=== PATIENT | male | born 1930 | race Caucasian/White ===

== ENCOUNTER 2017-04-29 13:31 | Inpatient (IN) | payer MEDICARE, OTHER ==
[~2017-04-29] VITALS: Ht 167.6 cm; Wt 69.6 kg
[2017-04-29] MEDS ORDERED: SODIUM CHLORIDE FLUSH 10ML SYR IVF ONE (14:30)
[2017-04-29] MEDS ORDERED: SODIUM CHLORIDE 0.9% 1,000ML IVBOLUS ONE (14:30)
[2017-04-29 14:51] LABS: DIFF TOTAL CELLS COUNTED 100 CELL DIFF
[2017-04-29] MEDS ORDERED: CEFTRIAXONE PMX 1GM/50ML 50 ML ONE (14:55)
[2017-04-29 14:56] LABS: ANISOCYTOSIS 2+; HYPOCHROMIA 1+; MICROCYTOSIS 2+
[2017-04-29 14:57] LABS: ASPARTATE AMINO TRANSFERASE 44 U/L (15-37); OVALOCYTES 1+; POLYCHROMASIA 1+
[2017-04-29 14:58] LABS: ACANTHOCYTES 1+
[2017-04-29 14:59] LABS: LARGE PLATELETS 1+; VERIFY COUNTS? YES
[2017-04-29 15:05] LABS: IS PT STATUS REG ER OR PRE ER? YES
[2017-04-29 15:07] LABS: BLOOD UREA NITROGEN 54 mg/dL (7-18)
[2017-04-29] MEDS ORDERED: CEFTRIAXONE 1,000 MG in SODIUM CHLORIDE 0.9% 50 ML IV ONE (15:30)
[2017-04-29] MEDS ORDERED: AZITHROMYCIN 500 MG in SODIUM CHLORIDE 0.9% 250 ML IV ONE (16:00)
[2017-04-29] MEDS ORDERED: SODIUM CHLORIDE 0.9%, 500ML IVBOLUS ONE (16:00)
[2017-04-29] MEDS ORDERED: ALPR0.25 PO (16:46)
[2017-04-29] MEDS ORDERED: ATOR40TA78 PO (16:46)
[2017-04-29] MEDS ORDERED: ASPI-650 PO (16:46)
[2017-04-29] MEDS ORDERED: TERA1CAP3 PO (16:46)
[2017-04-29] MEDS ORDERED: POLY17PO3 PO (16:46)
[2017-04-29] MEDS ORDERED: FERR325T23 PO (16:46)
[2017-04-29] MEDS ORDERED: POTA20PA PO (16:46)
[2017-04-29] MEDS ORDERED: METF500T4 PO (16:46)
[2017-04-29] MEDS ORDERED: FURO-92 PO (16:46)
[2017-04-29] MEDS ORDERED: OMEP-110 PO (16:46)
[2017-04-29] MEDS ORDERED: RAMI2.5C PO (16:46)
[2017-04-29] MEDS ORDERED: LINA5TAB PO (16:46)
[2017-04-29] MEDS ORDERED: BISACODYL 10 MG SUPP PR PRN (17:00)
[2017-04-29] MEDS ORDERED: ENALAPRILAT 1.25 MG/ML, 2ML IVPush PRN (17:00)
[2017-04-29] MEDS ORDERED: OXYcodone IR 5MG TABLET PO PRN (17:00)
[2017-04-29] MEDS ORDERED: POLYETHYLENE GLYCOL 17 GM PACKET PO PRN (17:00)
[2017-04-29] MEDS ORDERED: LABETALOL 5MG/ML, 20ML IVPush PRN (17:00)
[2017-04-29] MEDS ORDERED: HEPARIN 5,000 UNITS/ML, 1ML SQ SCH (17:00)
[2017-04-29] MEDS ORDERED: ONDANSETRON 2MG/ML, 2ML IVPush PRN (17:00)
[2017-04-29] MEDS ORDERED: ACETAMINOPHEN 325 MG TABLET PO PRN (17:00)
[2017-04-29] MEDS ORDERED: MORPHINE SULFATE 4 MG/ML, 1ML IVPush PRN (17:00)
[2017-04-29 18:30] VITALS: BP 102/58
[2017-04-29 19:43] VITALS: BP 113/62
[2017-04-29] MEDS: INSULIN ASPART 100 UNITS/ML, PEN SQ-INSULIN SCH (20:09)
[2017-04-29] MEDS: DOXYCYCLINE 100 MG in DEXTROSE 5% 250 ML IV SCH (20:14)
[2017-04-29] MEDS: FERROUS SULFATE 325 MG TABLET PO SCH (20:17)
[2017-04-29] MEDS: ATORVASTATIN 40 MG TABLET PO SCH (20:17)
[2017-04-29] MEDS ORDERED: MAGNESIUM SULFATE 6 GM in SODIUM CHLORIDE 0.9% 150 ML IV ONE (21:00)
[2017-04-29] MEDS ORDERED: MAGNESIUM SULFATE 6 GM in SODIUM CHLORIDE 0.9% 100 ML IV ONE (21:00)
[2017-04-29 22:12] VITALS: BP 112/62
[2017-04-29] MEDS: TERAZOSIN 1MG CAPSULE PO SCH (22:12)
[2017-04-30 00:46] LABS: IS PT STATUS REG ER OR PRE ER? NO
[2017-04-30 01:42] VITALS: BP_SYST 93; BP_SYST 95; BP_DIAS 52; BP_DIAS 59
[2017-04-30 05:41] LABS: ASPARTATE AMINO TRANSFERASE 44 U/L (15-37); BLOOD UREA NITROGEN 31 mg/dL (7-18)
[2017-04-30] MEDS: INSULIN ASPART 100 UNITS/ML, PEN SQ-INSULIN SCH ×4 (07:00→20:46)
[2017-04-30 07:35] VITALS: BP 118/69
[2017-04-30] MEDS: DOXYCYCLINE 100 MG in DEXTROSE 5% 250 ML IV SCH ×2 (08:00→20:37)
[2017-04-30] MEDS: ASPIRIN 325 MG TABLET EC PO SCH (08:00)
[2017-04-30] MEDS: OMEPRAZOLE 20 MG CAPSULE.DR PO SCH (08:00)
[2017-04-30] MEDS: SENNA/DOCUSATE TABLET PO SCH (08:00)
[2017-04-30] MEDS: FERROUS SULFATE 325 MG TABLET PO SCH ×2 (08:00→20:44)
[2017-04-30] MEDS: RAMIPRIL 2.5 MG CAPSULE PO SCH (08:01)
[2017-04-30] MEDS ORDERED: SODIUM CHLORIDE 0.9% 1,000 ML IV SCH (10:30)
[2017-04-30] MEDS ORDERED: POTASSIUM CHLORIDE 40 MEQ in SODIUM CHLORIDE 0.9% 500 ML IV ONE (10:30)
[2017-04-30 12:33] VITALS: BP 126/70
[2017-04-30 13:03] VITALS: BP 103/60
[2017-04-30] MEDS: SODIUM CHLORIDE 0.9% 1,000 ML IV SCH (14:22)
[2017-04-30] MEDS ORDERED: CEFTRIAXONE PMX 1GM/50ML 50 ML IV SCH (15:00)
[2017-04-30] MEDS: CEFTRIAXONE PMX 1GM/50ML 50 ML IV SCH (17:53)
[2017-04-30 20:05] VITALS: BP 117/59
[2017-04-30] MEDS: TERAZOSIN 1MG CAPSULE PO SCH (20:44)
[2017-04-30] MEDS: ATORVASTATIN 40 MG TABLET PO SCH (20:44)
[2017-05-01] MEDS: SODIUM CHLORIDE 0.9% 1,000 ML IV SCH (00:22)
[2017-05-01 00:24] VITALS: BP 118/58
[2017-05-01 05:35] LABS: BLOOD UREA NITROGEN 21 mg/dL (7-18)
[2017-05-01] MEDS: INSULIN ASPART 100 UNITS/ML, PEN SQ-INSULIN SCH ×3 (07:00→16:00)
[2017-05-01 07:53] VITALS: BP 98/51
[2017-05-01] MEDS: DOXYCYCLINE 100 MG in DEXTROSE 5% 250 ML IV SCH (08:54)
[2017-05-01] MEDS: ASPIRIN 325 MG TABLET EC PO SCH (08:55)
[2017-05-01] MEDS: OMEPRAZOLE 20 MG CAPSULE.DR PO SCH (08:55)
[2017-05-01] MEDS: FERROUS SULFATE 325 MG TABLET PO SCH (08:55)
[2017-05-01] MEDS: SENNA/DOCUSATE TABLET PO SCH (08:56)
[2017-05-01] MEDS ORDERED: MAGNESIUM SULFATE PMX 2GM/50ML 50 ML IV ONE (09:00)
[2017-05-01] MEDS ORDERED: POTASSIUM CHLORIDE 40 MEQ in SODIUM CHLORIDE 0.9% 500 ML IV ONE (09:00)
[2017-05-01 09:09] VITALS: BP 115/57
[2017-05-01] MEDS: RAMIPRIL 2.5 MG CAPSULE PO SCH (10:25)
[2017-05-01 13:49] VITALS: BP 114/60
[2017-05-01] MEDS ORDERED: CEFD300C37 PO (17:21)
[2017-05-01] MEDS ORDERED: DOXY-168 PO (17:21)
[2017-05-01] MEDS ORDERED: INSU100I18 SQ-INSULIN (17:21)
[2017-05-01] MEDS: CEFTRIAXONE PMX 1GM/50ML 50 ML IV SCH (17:30)
[2017-05-01] MEDS ORDERED: MEGE400O PO (17:33)
[2017-05-01] MEDS ORDERED: ALPR0.25 PO (17:34)
== END 2017-05-01 18:40 | disposition hospice, home (50) | DRG 871 ==
LOC: ED 15:47 → EDIP 15:48 → ED 16:23 → 4WST 17:39
PROVIDERS: ADMIT Internal Medicine; ATTEND Internal Medicine
DX: A41.9 Sepsis, unspecified organism (principal); E43 Unspecified severe protein-calorie malnutrition; N17.0 Acute kidney failure with tubular necrosis; J96.01 Acute respiratory failure with hypoxia; R65.21 Severe sepsis with septic shock; J18.1 Lobar pneumonia, unspecified organism; D50.9 Iron deficiency anemia, unspecified; Z66 Do not resuscitate; Z51.5 Encounter for palliative care; E11.9 Type 2 diabetes mellitus without complications; E78.5 Hyperlipidemia, unspecified; I11.0 Hypertensive heart disease with heart failure; I25.10 Atherosclerotic heart disease of native coronary artery without angina pectoris; I50.9 Heart failure, unspecified; I71.4 Abdominal aortic aneurysm, without rupture; K21.9 Gastro-esophageal reflux disease without esophagitis; M47.9 Spondylosis, unspecified; N28.89 Other specified disorders of kidney and ureter; N40.0 Benign prostatic hyperplasia without lower urinary tract symptoms; R62.7 Adult failure to thrive; F17.210 Nicotine dependence, cigarettes, uncomplicated; Z85.528 Personal history of other malignant neoplasm of kidney; Z95.0 Presence of cardiac pacemaker; Z95.5 Presence of coronary angioplasty implant and graft; Z68.24 Body mass index [BMI] 24.0-24.9, adult
CPT/HCPCS: 36415; 71010; 71250; 80048; 80053; 80061; 82306; 82607; 82728; 82962; 83036; 83540; 83550; 83605; 83735; 83880; 84100; 84145; 84439; 84443; 84466; 84484; 85025; 85610; 85730; 87040; 93005; 93306; 96361; 96365; J0456; J0696; J3475; J3480; J7060; J7030; J7040; J7050